=== PATIENT | female | born 1990 | race Caucasian/White ===

== ENCOUNTER 2018-04-06 17:48 | Emergency (ER) | payer MEDICAID ==
[~2018-04-06] VITALS: Ht 160 cm; Wt 70.0 kg
[2018-04-06 17:54] VITALS: BP 140/76
[2018-04-06] MEDS ORDERED: MUPI22OI30 TOP (18:13)
[2018-04-06] MEDS ORDERED: BACDS PO (18:13)
[2018-04-06] MEDS ORDERED: sulfamethoxazole/trimethoprim DS (800/160mg) tablet PO STA (18:18)
== END 2018-04-06 18:30 | disposition home or self-care (01) ==
LOC: ER 17:49
DX: L02.413 Cutaneous abscess of right upper limb (principal); F15.90 Other stimulant use, unspecified, uncomplicated; Z86.14 Personal history of Methicillin resistant Staphylococcus aureus infection; Z79.899 Other long term (current) drug therapy
CPT/HCPCS: 99283